=== PATIENT | male | born 1980 | race Caucasian/White ===

== ENCOUNTER 2016-05-20 10:17 | Emergency (ER) | payer BC, OTHER ==
[~2016-05-20] VITALS: Wt 90.7 kg
[~2016-05-20 10:17] MED LIST: ACYCLOVIR800 MG PO; AMITRIPTYLINE25 MG PO; AUGMENTIN 875 M1 TAB PO; BP MEDICATION PO; CEFTIN500 MG PO; CIALIS5 MG PO; CIPRO500 MG PO; CYCLOBENZAPRINE5 M3 PO; DARVOCET N 1001 TAB PO; DILAUDID1 MG/1 ML PO; DILAUDID4 MG PO; ETODOLAC400 M2 PO; FLEXERIL10 MG PO; FLOMAX0.4 MG PO; Fioricet 325 MG1 TAB PO; HYDROCODONE BIT1 T11 PO; IBU-8800 MG PO; KEFLEX500 MG PO; MEDROL DOSEPAK4 MG PO; Motrin,Rufen800 MG PO; NAPROSYN500 MG PO; NORVASC5 MG PO; PERCOCET 325 MG1 TA2 PO; PERCOCET 325 MG1 TA3 PO; PERCOCET 325 MG1 TA4 PO; PROVENTIL0.09 MG/AC IH; PYRIDIUM200 M1 PO; ROBAXIN750 MG PO; TRAMADOL HCL50 MG PO; VIBRAMYCIN100 MG PO; VICODIN 5/500 505 MG PO; VICODIN 500 MG-1 TAB PO; VOLTAREN50 M1 PO; ZITHROMAX250 MG PO; ZOFRAN ODT4 MG SL
[2016-05-20] MEDS ORDERED: NAPROSYN500 MG PO (11:29)
[2016-05-20 11:32] VITALS: BP 140/82
== END 2016-05-20 11:54 | disposition home or self-care (01) ==
LOC: ED 10:17
DX: S93.401A Sprain of unspecified ligament of right ankle, initial encounter (principal); F17.200 Nicotine dependence, unspecified, uncomplicated; Z90.49 Acquired absence of other specified parts of digestive tract; Z98.890 Other specified postprocedural states; Z87.442 Personal history of urinary calculi; X58.XXXA Exposure to other specified factors, initial encounter; Y93.89 Activity, other specified; Y92.89 Other specified places as the place of occurrence of the external cause; Y99.9 Unspecified external cause status

== ENCOUNTER → 2016-08-16 | Outpatient (CLI) | payer BC, OTHER | END | disposition home or self-care (01) | LOC: MRI 08-15 10:00 | DX: F07.81 Postconcussional syndrome (principal) ==

== ENCOUNTER 2016-11-11 01:53 | Emergency (ER) | payer BC, OTHER ==
[~2016-11-11] VITALS: Ht 180.3 cm; Wt 86.2 kg
[2016-11-11 02:37] LABS: BASO # 0.1 10*3/uL (0.0-0.1); BASO % 0.5 % (0.0-1.0); EOS # 0.2 10*3/uL (0.0-0.4); EOS % 1.9 % (1.0-4.0); HEMATOCRIT 45.1 % (42.0-52.0); HEMOGLOBIN 14.6 g/dl (14.0-18.0); LYMPH # 3.1 10*3/uL (1.3-4.4); LYMPH % 27.4 % (27.0-41.0); MEAN CELL VOLUME 90.9 fl (80.0-94.0); MEAN CORPUSCULAR HGB 29.4 pg (27.0-31.0); MEAN CORPUSCULAR HGB CONC 32.4 g/dl (33.0-37.0); MONO # 0.8 10*3/uL (0.1-1.0); NEUT # 7.1 10*3/uL (2.3-7.9); NEUT % 62.8 % (47.0-73.0); PLATELET COUNT AUTOMATED 328 10*3/uL (130-400); RED BLOOD COUNT 4.96 10*6/uL (4.50-5.90); RED CELL DISTRI WIDTH 13.1 % (0-14.5); WHITE BLOOD COUNT 11.4 10*3/uL (4.8-10.8)
[2016-11-11 02:53] LABS: ALBUMIN 3.8 gm/dl (3.1-4.5); ALKALINE PHOSPHATASE 93 U/L (45-117); BILIRUBIN, TOTAL 0.2 mg/dl (0.2-1.0); BUN 13 mg/dl (7-24); CARBON DIOXIDE 29 mmol/L (21-32); CHLORIDE 104 mmol/L (98-107); EST GLOM FILT AFRICAN AMERICAN > 60 ml/min; GLUCOSE 96 mg/dL (65-99); POTASSIUM 3.9 mmol/L (3.5-5.1); SGOT/AST 10 IU/L (3-35); SGPT/ALT 22 U/L (12-78); SODIUM 142 mmol/L (136-145); TOTAL PROTEIN 7.7 gm/dL (6.4-8.2)
[2016-11-11 03:27] LABS: BILIRUBIN NEGATIVE (NEGATIVE); BLOOD 3+ (NEGATIVE); CLARITY SL CLOUDY (CLEAR); COLOR YELLOW (YELLOW); GLUCOSE NEGATIVE (NEGATIVE); KETONE TRACE (NEGATIVE); LEUKO ESTERASE NEGATIVE (NEGATIVE); NITRITE NEGATIVE (NEGATIVE); PROTEIN TRACE (NEGATIVE); SPECIFIC GRAVITY 1.025 (1.005-1.030); UROBILINOGEN 0.2 E.U./dl (0.2-1.0)
[2016-11-11 03:35] LABS: BACTERIA 2+; CALCIUM OXALATE CRYSTALS 1+; RBC TNTC rbc/hpf (0-2); URINE REFLEX COMMENT YES (NO); WBC 0-2 wbc/hpf (0-5)
[2016-11-11 04:01] VITALS: BP 184/98
== END 2016-11-11 05:08 | disposition home or self-care (01) ==
LOC: ED 01:53
PROVIDERS: Emergency Medicine
DX: N20.1 Calculus of ureter (principal); Z90.49 Acquired absence of other specified parts of digestive tract

== ENCOUNTER 2017-04-13 15:55 | Emergency (ER) | payer BC, OTHER ==
[~2017-04-13] VITALS: Ht 180.3 cm; Wt 95.3 kg
[2017-04-13 16:02] VITALS: BP 142/130
[2017-04-13] MEDS ORDERED: PERCOCET 5-3251 EACH PO (17:07)
[2017-04-13] MEDS ORDERED: NAPROSYN500 MG PO (17:07)
[2017-04-14] MEDS ORDERED: SERTRALINE HYD100 MG PO (14:21)
[2017-04-14] MEDS ORDERED: BUSPAR15 MG PO (14:21)
[2017-04-18] MEDS ORDERED: PERCOCET 10-321 EACH PO (17:12)
[2017-04-18] MEDS ORDERED: Zofran4 MG PO (17:13)
== END 2017-04-13 17:26 | disposition home or self-care (01) ==
LOC: ED 15:55
DX: S42.021A Displaced fracture of shaft of right clavicle, initial encounter for closed fracture (principal); R03.0 Elevated blood-pressure reading, without diagnosis of hypertension; F17.200 Nicotine dependence, unspecified, uncomplicated; W22.09XA Striking against other stationary object, initial encounter; Y93.I9 Activity, other involving external motion; Y92.89 Other specified places as the place of occurrence of the external cause; Y99.8 Other external cause status

== ENCOUNTER → 2017-04-18 | Day surgery (SDC) | payer BC, OTHER ==
[2017-04-14 14:38] VITALS: BP 156/74
[2017-04-14 15:21] LABS: BASO % 0.4 % (0.0-1.0); EOS # 0.3 10*3/uL (0.0-0.4); EOS % 4.6 % (1.0-4.0); HEMATOCRIT 39.7 % (42.0-52.0); HEMOGLOBIN 13.1 g/dl (14.0-18.0); LYMPH # 2.2 10*3/uL (1.3-4.4); LYMPH % 31.6 % (27.0-41.0); MEAN CELL VOLUME 93.9 fl (80.0-94.0); MEAN PLATELET VOLUME 11.4 fl (9.6-12.3); MONO # 0.6 10*3/uL (0.1-1.0); MONO % 8.4 % (3.0-9.0); NEUT # 3.8 10*3/uL (2.3-7.9); NEUT % 54.3 % (47.0-73.0); PLATELET COUNT AUTOMATED 274 10*3/uL (130-400); RED BLOOD COUNT 4.23 10*6/uL (4.50-5.90); RED CELL DISTRI WIDTH 14.5 % (0-14.5)
[2017-04-14 15:43] LABS: ALKALINE PHOSPHATASE 71 U/L (45-117); BUN 20 mg/dl (7-24); CHLORIDE 105 mmol/L (98-107); CREATININE 1.45 mg/dL (0.70-1.30); SGOT/AST 24 IU/L (3-35); SGPT/ALT 27 U/L (12-78); SODIUM 137 mmol/L (136-145); TOTAL PROTEIN 7.8 gm/dL (6.4-8.2)
[2017-04-14 16:32] LABS: BILIRUBIN NEGATIVE (NEGATIVE); BLOOD NEGATIVE (NEGATIVE); CLARITY SL CLOUDY (CLEAR); COLOR YELLOW (YELLOW); GLUCOSE NEGATIVE (NEGATIVE); KETONE NEGATIVE (NEGATIVE); LEUKO ESTERASE NEGATIVE (NEGATIVE); NITRITE NEGATIVE (NEGATIVE); SPECIFIC GRAVITY >= 1.030 (1.005-1.030); UROBILINOGEN 0.2 E.U./dl (0.2-1.0)
[2017-04-14 16:41] LABS: BACTERIA 2+; CALCIUM OXALATE CRYSTALS 4+; EPITHELIAL CELLS 0-2; MUCOUS TRACE; RBC 0-2 rbc/hpf (0-2)
[2017-04-18] VITALS (8 sets, daily range): BP systolic 114–132; BP diastolic 76–92
[~2017-04-18] VITALS: Ht 180.3 cm; Wt 97.5 kg
[~2017-04-18] MED LIST changes: +BUSPAR15 MG PO; +PERCOCET 10-321 EACH PO; +PERCOCET 5-3251 EACH PO; +SERTRALINE HYD100 MG PO; +Zofran4 MG PO
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
== END ==
LOC: SDC 04-14 14:00
PROVIDERS: Orthopaedic Surgery
DX: S42.021A Displaced fracture of shaft of right clavicle, initial encounter for closed fracture (principal); F17.210 Nicotine dependence, cigarettes, uncomplicated; K21.9 Gastro-esophageal reflux disease without esophagitis; F41.9 Anxiety disorder, unspecified; F32.9 Major depressive disorder, single episode, unspecified; Z90.49 Acquired absence of other specified parts of digestive tract; Z98.890 Other specified postprocedural states; Y93.I9 Activity, other involving external motion; Y93.89 Activity, other specified; Y92.89 Other specified places as the place of occurrence of the external cause; Y99.8 Other external cause status

== ENCOUNTER → 2017-04-26 | Outpatient (CLI) | payer BC, OTHER | END | disposition home or self-care (01) | LOC: ORTHO 07:14 | DX: M89.8X1 Other specified disorders of bone, shoulder (principal); J98.11 Atelectasis ==

== ENCOUNTER → 2017-05-31 | Outpatient (CLI) | payer BC, OTHER | END | disposition home or self-care (01) | LOC: ORTHO 00:34 | DX: S42.021D Displaced fracture of shaft of right clavicle, subsequent encounter for fracture with routine healing (principal); X58.XXXD Exposure to other specified factors, subsequent encounter ==

== ENCOUNTER → 2017-07-10 | Outpatient (CLI) | payer BC, OTHER | END | disposition home or self-care (01) | LOC: ORTHO 02:10 | DX: Z01.818 Encounter for other preprocedural examination (principal); S42.021D Displaced fracture of shaft of right clavicle, subsequent encounter for fracture with routine healing; X58.XXXD Exposure to other specified factors, subsequent encounter ==

== ENCOUNTER 2017-09-14 09:25 | Emergency (ER) | payer BC, OTHER ==
[~2017-09-14] VITALS: Ht 175.2 cm; Wt 95.3 kg
[2017-09-14] MEDS ORDERED: MEDROL DOSEPAK4 MG PO (12:34)
[2017-09-14] MEDS ORDERED: Percocet 325 MG1 TAB PO (12:34)
[2017-09-14] MEDS ORDERED: CYCLOBENZAPRINE10 MG PO (12:34)
== END 2017-09-14 12:53 | disposition home or self-care (01) ==
LOC: ED 09:25
DX: S39.012A Strain of muscle, fascia and tendon of lower back, initial encounter (principal); M25.511 Pain in right shoulder; Z79.899 Other long term (current) drug therapy; Z87.442 Personal history of urinary calculi; Z90.49 Acquired absence of other specified parts of digestive tract; X50.0XXA Overexertion from strenuous movement or load, initial encounter; Y93.89 Activity, other specified; Y92.89 Other specified places as the place of occurrence of the external cause; Y99.8 Other external cause status

== ENCOUNTER 2017-10-10 17:10 | Emergency (ER) | payer BC, OTHER ==
[~2017-10-10] VITALS: Ht 182.8 cm; Wt 104.3 kg
[~2017-10-10 17:10] MED LIST changes: +CYCLOBENZAPRINE10 MG PO; +Percocet 325 MG1 TAB PO
[2017-10-10 18:21] VITALS: BP 114/77
== END 2017-10-10 19:00 | disposition home or self-care (01) ==
LOC: ED 17:10
DX: S69.91XA Unspecified injury of right wrist, hand and finger(s), initial encounter (principal); F32.9 Major depressive disorder, single episode, unspecified; F41.9 Anxiety disorder, unspecified; F90.9 Attention-deficit hyperactivity disorder, unspecified type; Z90.49 Acquired absence of other specified parts of digestive tract; Z98.890 Other specified postprocedural states; Z79.899 Other long term (current) drug therapy; W22.8XXA Striking against or struck by other objects, initial encounter; Y93.89 Activity, other specified; Y92.89 Other specified places as the place of occurrence of the external cause; Y99.9 Unspecified external cause status

== ENCOUNTER 2017-10-12 16:22 | Emergency (ER) | payer BC, OTHER ==
[~2017-10-12] VITALS: Ht 154.9 cm; Wt 93.0 kg
[2017-10-12 16:26] VITALS: BP 108/81
[2017-10-12] MEDS ORDERED: NORCO 5-325 TA1 EACH PO (18:12)
== END 2017-10-12 18:16 | disposition home or self-care (01) ==
LOC: ED 16:22
DX: S62.91XA Unspecified fracture of right hand, initial encounter for closed fracture (principal); F17.200 Nicotine dependence, unspecified, uncomplicated; Z90.49 Acquired absence of other specified parts of digestive tract; Z98.890 Other specified postprocedural states; Z79.899 Other long term (current) drug therapy; W22.8XXA Striking against or struck by other objects, initial encounter; Y93.89 Activity, other specified; Y92.89 Other specified places as the place of occurrence of the external cause; Y99.9 Unspecified external cause status

== ENCOUNTER 2017-11-15 11:23 | Emergency (ER) | payer BC, OTHER ==
[~2017-11-15] VITALS: Ht 180.3 cm; Wt 97.5 kg
[~2017-11-15 11:23] MED LIST changes: +NORCO 5-325 TA1 EACH PO
[2017-12-15] MEDS ORDERED: KEFLEX500 M1 PO (21:46)
[2017-12-15] MEDS ORDERED: MOBIC7.5 MG PO (22:10)
[2017-12-18] MEDS ORDERED: NAPROSYN500 MG PO (11:30)
== END 2017-11-15 13:40 | disposition home or self-care (01) ==
LOC: ED 11:23
DX: F41.8 Other specified anxiety disorders (principal); F17.200 Nicotine dependence, unspecified, uncomplicated; Z90.49 Acquired absence of other specified parts of digestive tract; Z79.899 Other long term (current) drug therapy

== ENCOUNTER 2017-11-24 03:32 | Emergency (ER) | payer BC, OTHER ==
[~2017-11-24] VITALS: Ht 180.3 cm; Wt 81.6 kg
--- NOTE | ~2017-11-24 | EKG ---
[place], [place] ELECTROCARDIOGRAM REPORT NAME: MAVIS NIELSEN UNIT #: [id number] ROOM: DOCTOR: EPIPHANY DRAFT REPORT BIRTHDATE: [birth year] [facility] Test Date: 2017-11-24 Test Time: 04:15:14 Pat Name: MAVIS NIELSEN Department: ER Room: 4 Gender: M Cane Piler: : 1980 Requested By: EMMETT THORNTON Order Number: [id number] Reading MD: Ramón Burns MD Measurements Intervals [place] Rate: 103 P: 51 SC: 174 QRS: -11 QRSD: 85 T: 65 QT: 354 QTc: 464 Interpretive Statements Sinus tachycardia Probable left atrial enlargement RSR' in V1 or V2, right VCD or RVH Baseline wander in lead(s) I,II,aVR,aVL,aVF,V3,V4,V5,V6 Electronically Signed On 11-24-2017 21:36:59 PDT by Ramón Burns MD CM:EKGRPT:ELECTROCARDIOGRAM REPORT [id number] EMMETT HERNANDEZ DRAFT REPORT EMMETT THORNTON DO
[2017-11-24 03:39] VITALS: BP 141/85
[2017-11-24] MEDS ORDERED: SEROQUEL100 MG PO (03:41)
[2017-11-24] MEDS ORDERED: ZOLOFT100 MG PO (03:41)
[2017-11-24] MEDS ORDERED: TRAZODONE150 MG PO (03:41)
[2017-11-24] MEDS ORDERED: BUSPIRONE30 MG PO (03:42)
[2017-11-24] MEDS ORDERED: CLONIDINE0.2 MG PO (03:42)
[2017-11-24] MEDS ORDERED: WELLBUTRIN SR100 MG PO (03:43)
[2017-11-24 04:23] LABS: BASO # 0.1 10*3/uL (0.0-0.1); BASO % 0.6 % (0.0-1.0); EOS # 0.4 10*3/uL (0.0-0.4); EOS % 4.5 % (1.0-4.0); HEMATOCRIT 39.3 % (42.0-52.0); HEMOGLOBIN 12.7 g/dl (14.0-18.0); LYMPH # 2.8 10*3/uL (1.3-4.4); LYMPH % 32.8 % (27.0-41.0); MEAN CELL VOLUME 93.6 fl (80.0-94.0); MEAN CORPUSCULAR HGB 30.2 pg (27.0-31.0); MEAN CORPUSCULAR HGB CONC 32.3 g/dl (33.0-37.0); MEAN PLATELET VOLUME 12.1 fl (9.6-12.3); MONO # 0.8 10*3/uL (0.1-1.0); MONO % 9.1 % (3.0-9.0); NEUT # 4.4 10*3/uL (2.3-7.9); NEUT % 52.6 % (47.0-73.0); PLATELET COUNT AUTOMATED 202 10*3/uL (130-400); RED CELL DISTRI WIDTH 15.5 % (0-14.5); WHITE BLOOD COUNT 8.4 10*3/uL (4.8-10.8)
[2017-11-24 04:41] LABS: ALBUMIN 3.4 gm/dl (3.1-4.5); ALKALINE PHOSPHATASE 74 U/L (45-117); BUN 16 mg/dl (7-24); CHLORIDE 109 mmol/L (98-107); CREATININE 1.52 mg/dL (0.70-1.30); POTASSIUM 3.1 mmol/L (3.5-5.1); SGOT/AST 15 IU/L (3-35); SGPT/ALT 27 U/L (12-78); SODIUM 144 mmol/L (136-145); TOTAL PROTEIN 6.5 gm/dL (6.4-8.2)
[2017-11-24 04:43] LABS: ACETAMINOPHEN (TYLENOL) < 2.0 ug/ml (10-30)
[2017-11-24 04:46] LABS: ETHYL ALCOHOL < 3.0 mg/dl (<3)
[2017-11-24 05:23] LABS: BILIRUBIN NEGATIVE (NEGATIVE); BLOOD NEGATIVE (NEGATIVE); CLARITY CLEAR (CLEAR); COLOR YELLOW (YELLOW); GLUCOSE NEGATIVE (NEGATIVE); KETONE TRACE (NEGATIVE); LEUKO ESTERASE NEGATIVE (NEGATIVE); NITRITE NEGATIVE (NEGATIVE); SPECIFIC GRAVITY >= 1.030 (1.005-1.030); UROBILINOGEN 0.2 E.U./dl (0.2-1.0)
[2017-11-24 05:32] LABS: WBC 0-2 wbc/hpf (0-5)
[2017-11-24 05:33] LABS: URINE AMPHETAMINES < 1000 (1000ng/ml); URINE BARBITURATES < 200 (200ng/ml); URINE BENZODIAZEPINES > 200 (200ng/ml); URINE CANNABINOIDS (THC) < 50 (50ng/ml); URINE COCAINE < 300 (300ng/ml); URINE METHADONE < 300 (300ng/ml); URINE OPIATES < 300 (300ng/ml)
[2017-11-24 05:35] LABS: URINE PHENCYCLIDINE < 25 (25ng/ml)
[2017-12-15] MEDS ORDERED: KEFLEX500 M1 PO (21:46)
[2017-12-15] MEDS ORDERED: MOBIC7.5 MG PO (22:10)
[2017-12-18] MEDS ORDERED: NAPROSYN500 MG PO (11:30)
== END 2017-11-24 06:59 | disposition left against medical advice (07) ==
LOC: ED 03:32
PROVIDERS: Emergency Medicine
DX: R41.82 Altered mental status, unspecified (principal); M54.9 Dorsalgia, unspecified; M79.606 Pain in leg, unspecified; Z79.899 Other long term (current) drug therapy; Z90.49 Acquired absence of other specified parts of digestive tract

== ENCOUNTER 2018-01-23 22:28 | Emergency (ER) | payer BC, OTHER ==
[~2018-01-23] VITALS: Ht 200.6 cm; Wt 90.7 kg
[~2018-01-23 22:28] MED LIST changes: +BUSPIRONE30 MG PO; +CLONIDINE0.2 MG PO; +KEFLEX500 M1 PO; +MOBIC7.5 MG PO; +SEROQUEL100 MG PO; +TRAZODONE150 MG PO; +WELLBUTRIN SR100 MG PO; +ZOLOFT100 MG PO
[2018-01-23 22:29] VITALS: BP 139/65
== END 2018-01-24 01:34 | disposition home or self-care (01) ==
LOC: ED 22:28
DX: R51 Headache (principal); R11.10 Vomiting, unspecified; Z79.899 Other long term (current) drug therapy; Z87.442 Personal history of urinary calculi; Z90.49 Acquired absence of other specified parts of digestive tract

== ENCOUNTER 2018-01-24 12:05 | Emergency (ER) | payer BC, OTHER ==
[~2018-01-24] VITALS: Ht 180.3 cm; Wt 95.3 kg
[2018-01-24 13:07] LABS: BASO % 0.2 % (0.0-1.0); HEMATOCRIT 51.6 % (42.0-52.0); LYMPH # 2.1 10*3/uL (1.3-4.4); LYMPH % 15.4 % (27.0-41.0); MEAN CELL VOLUME 93.1 fl (80.0-94.0); MEAN CORPUSCULAR HGB 30.7 pg (27.0-31.0); MEAN CORPUSCULAR HGB CONC 32.9 g/dl (33.0-37.0); MEAN PLATELET VOLUME 11.2 fl (9.6-12.3); MONO # 0.9 10*3/uL (0.1-1.0); NEUT # 10.4 10*3/uL (2.3-7.9); NEUT % 77.1 % (47.0-73.0); PLATELET COUNT AUTOMATED 282 10*3/uL (130-400); RED BLOOD COUNT 5.54 10*6/uL (4.50-5.90); RED CELL DISTRI WIDTH 13.6 % (0-14.5); WHITE BLOOD COUNT 13.5 10*3/uL (4.8-10.8)
[2018-01-24 13:30] LABS: ACETAMINOPHEN (TYLENOL) < 2.0 ug/ml (10-30); ALBUMIN 4.4 gm/dl (3.1-4.5); ALKALINE PHOSPHATASE 73 U/L (45-117); BUN 19 mg/dl (7-24); CHLORIDE 109 mmol/L (98-107); CREATININE 1.47 mg/dL (0.70-1.30); ETHYL ALCOHOL < 3.0 mg/dl (<3); POTASSIUM 4.3 mmol/L (3.5-5.1); SGOT/AST 14 IU/L (3-35); SGPT/ALT 28 U/L (12-78); SODIUM 140 mmol/L (136-145); TOTAL PROTEIN 8.4 gm/dL (6.4-8.2)
[2018-01-24 15:19] LABS: BILIRUBIN 1+ (NEGATIVE); BLOOD TRACE-LYSED (NEGATIVE); CLARITY SL CLOUDY (CLEAR); COLOR YELLOW (YELLOW); GLUCOSE NEGATIVE (NEGATIVE); KETONE NEGATIVE (NEGATIVE); LEUKO ESTERASE NEGATIVE (NEGATIVE); NITRITE NEGATIVE (NEGATIVE); SPECIFIC GRAVITY >= 1.030 (1.005-1.030); UROBILINOGEN 0.2 E.U./dl (0.2-1.0)
[2018-01-24 15:30] LABS: CALCIUM OXALATE CRYSTALS 1+
[2018-01-24 15:31] LABS: BACTERIA 1+; HYALINE CAST 31-40; MUCOUS 1+
[2018-01-24 15:32] LABS: EPITHELIAL CELLS 0-2
[2018-01-24 15:33] LABS: URINE AMPHETAMINES < 1000 (1000ng/ml); URINE BARBITURATES < 200 (200ng/ml); URINE BENZODIAZEPINES > 200 (200ng/ml); URINE CANNABINOIDS (THC) > 50 (50ng/ml); URINE COCAINE < 300 (300ng/ml); URINE METHADONE < 300 (300ng/ml); URINE OPIATES < 300 (300ng/ml); URINE PHENCYCLIDINE < 25 (25ng/ml)
== END 2018-01-24 17:13 | disposition home or self-care (01) ==
LOC: ED 12:05
PROVIDERS: Physician Assistant
DX: R51 Headache (principal); F41.9 Anxiety disorder, unspecified; Z79.899 Other long term (current) drug therapy

== ENCOUNTER 2018-02-14 14:47 | Inpatient (IN) | payer OTHER ==
[~2018-02-14] VITALS: Ht 180.3 cm; Wt 88.6 kg
--- NOTE | ~2018-02-14 | EKG ---
[place], [place] ELECTROCARDIOGRAM REPORT NAME: MAVIS NIELSEN UNIT #: [id number] ROOM: [facility] DOCTOR: NIDHI DRAFT REPORT BIRTHDATE: [birth year] [facility] Test Date: 2018-02-14 Test Time: 15:06:00 Pat Name: MAVIS NIELSEN Department: Room: [facility] Gender: M Rn Pain Management: SS RESP : 1980 Requested By: RUSS DUNN Order Number: [id number] Reading MD: Talat Calabrese MD Measurements Intervals [place] Rate: 109 P: 39 MD: 156 QRS: -21 QRSD: 81 T: 77 QT: 341 QTc: 460 Interpretive Statements Sinus tachycardia Borderline left axis deviation RSR' in V1 or V2, probably normal variant Electronically Signed On 02-19-2018 13:48:32 PDT by Talat Calabrese MD CM:EKGRPT:ELECTROCARDIOGRAM REPORT [id number] RUSS TERRELL DRAFT REPORT RUSS DUNN MD
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
[2018-02-14 14:51] VITALS: BP 144/87
[2018-02-14 15:10] LABS: BASO % 0.5 % (0.0-1.0); EOS # 0.1 10*3/uL (0.0-0.4); EOS % 0.9 % (1.0-4.0); HEMATOCRIT 45.6 % (42.0-52.0); LYMPH % 34.9 % (27.0-41.0); MEAN CELL VOLUME 92.3 fl (80.0-94.0); MEAN CORPUSCULAR HGB 30.4 pg (27.0-31.0); MEAN CORPUSCULAR HGB CONC 32.9 g/dl (33.0-37.0); MEAN PLATELET VOLUME 11.5 fl (9.6-12.3); MONO # 0.5 10*3/uL (0.1-1.0); MONO % 9.6 % (3.0-9.0); NEUT % 53.2 % (47.0-73.0); PLATELET COUNT AUTOMATED 269 10*3/uL (130-400); RED BLOOD COUNT 4.94 10*6/uL (4.50-5.90); RED CELL DISTRI WIDTH 14.2 % (0-14.5); WHITE BLOOD COUNT 5.6 10*3/uL (4.8-10.8)
[2018-02-14 15:16] LABS: ACT PARTIAL THROMBO TIME 24.2 SECONDS (20.8-31.5)
[2018-02-14 15:23] LABS: ALBUMIN 3.6 gm/dl (3.1-4.5); ALKALINE PHOSPHATASE 54 U/L (45-117); BUN 10 mg/dl (7-24); CHLORIDE 107 mmol/L (98-107); CREATININE 1.27 mg/dL (0.70-1.30); POTASSIUM 3.7 mmol/L (3.5-5.1); SGOT/AST 15 IU/L (3-35); SGPT/ALT 24 U/L (12-78); SODIUM 140 mmol/L (136-145); TOTAL PROTEIN 7.6 gm/dL (6.4-8.2); TROPONIN I 0.016 ng/ml (<0.045)
[2018-02-14 15:25] LABS: ACETAMINOPHEN (TYLENOL) < 5.0 ug/ml (10-30); ETHYL ALCOHOL < 3.0 mg/dl (<3)
[2018-02-14 16:00] VITALS: BP 140/91
[2018-02-14 16:03] LABS: BILIRUBIN NEGATIVE (NEGATIVE); BLOOD NEGATIVE (NEGATIVE); CLARITY CLEAR (CLEAR); COLOR YELLOW (YELLOW); GLUCOSE NEGATIVE (NEGATIVE); KETONE NEGATIVE (NEGATIVE); LEUKO ESTERASE NEGATIVE (NEGATIVE); NITRITE NEGATIVE (NEGATIVE); UROBILINOGEN 0.2 E.U./dl (0.2-1.0)
[2018-02-14 16:11] LABS: URINE AMPHETAMINES < 1000 (1000ng/ml); URINE BARBITURATES < 200 (200ng/ml); URINE BENZODIAZEPINES < 200 (200ng/ml); URINE CANNABINOIDS (THC) < 50 (50ng/ml); URINE COCAINE < 300 (300ng/ml); URINE METHADONE < 300 (300ng/ml); URINE OPIATES < 300 (300ng/ml)
[2018-02-14 16:13] LABS: RBC 0-2 rbc/hpf (0-2); URINE PHENCYCLIDINE < 25 (25ng/ml)
[2018-02-14 16:14] LABS: BACTERIA TRACE; EPITHELIAL CELLS 0-2; WBC 0-2 wbc/hpf (0-5)
[2018-02-14 18:12] VITALS: BP 143/94
[2018-02-14 18:58] VITALS: BP 122/96
[2018-02-14 19:40] VITALS: BP 140/91
[2018-02-14] MEDS ORDERED: ATIVAN0.5 MG PO (21:00)
[2018-02-15] VITALS: BP 146/79
[2018-02-15 04:00] VITALS: BP 150/82
[2018-02-15 06:03] LABS: BASO # 0.1 10*3/uL (0.0-0.1); BUN 10 mg/dl (7-24); CHLORIDE 110 mmol/L (98-107); CHOLESTEROL 169 mg/dL (<200); CREATININE 1.27 mg/dL (0.70-1.30); EOS # 0.2 10*3/uL (0.0-0.4); EOS % 3.3 % (1.0-4.0); HDL CHOLESTEROL 69 mg/dl (40-60); HEMATOCRIT 43.9 % (42.0-52.0); HEMOGLOBIN 14.4 g/dl (14.0-18.0); LDL CHOLESTEROL 78 mg/dL (9-159); LYMPH # 2.1 10*3/uL (1.3-4.4); LYMPH % 42.8 % (27.0-41.0); MEAN CELL VOLUME 93.4 fl (80.0-94.0); MEAN CORPUSCULAR HGB 30.6 pg (27.0-31.0); MEAN CORPUSCULAR HGB CONC 32.8 g/dl (33.0-37.0); MEAN PLATELET VOLUME 11.8 fl (9.6-12.3); MONO # 0.5 10*3/uL (0.1-1.0); MONO % 10.6 % (3.0-9.0); NEUT % 41.9 % (47.0-73.0); PHOSPHOROUS 2.8 mg/dL (2.5-4.9); PLATELET COUNT AUTOMATED 250 10*3/uL (130-400); POTASSIUM 4.3 mmol/L (3.5-5.1); SODIUM 141 mmol/L (136-145); TRIGLYCERIDES 108 mg/dl (<150); VLDL CHOLESTEROL 22 mg/dL (6-40); WHITE BLOOD COUNT 4.8 10*3/uL (4.8-10.8)
[2018-02-15 06:11] LABS: FREE T4 0.77 ng/dl (0.76-1.46)
[2018-02-15 08:00] VITALS: BP 158/87
== END 2018-02-15 12:27 | disposition home or self-care (01) | DRG 71 ==
LOC: ED 14:47 → EDHOLD 18:39 → ICCU 18:39
PROVIDERS: Emergency Medicine; Internal Medicine
DX: G93.40 Encephalopathy, unspecified (principal); F33.9 Major depressive disorder, recurrent, unspecified; E83.41 Hypermagnesemia; E66.3 Overweight; F43.10 Post-traumatic stress disorder, unspecified; M54.5 Low back pain; F17.210 Nicotine dependence, cigarettes, uncomplicated; R00.0 Tachycardia, unspecified; R73.9 Hyperglycemia, unspecified; R03.0 Elevated blood-pressure reading, without diagnosis of hypertension; F41.9 Anxiety disorder, unspecified; Z87.81 Personal history of (healed) traumatic fracture; Z68.27 Body mass index [BMI] 27.0-27.9, adult; Z71.6 Tobacco abuse counseling; Z90.49 Acquired absence of other specified parts of digestive tract; Z79.899 Other long term (current) drug therapy

== ENCOUNTER 2018-02-27 23:44 | Emergency (ER) | payer OTHER ==
[~2018-02-27] VITALS: Ht 180.3 cm; Wt 83.9 kg
[~2018-02-27 23:44] MED LIST changes: +ATIVAN0.5 MG PO
[2018-02-27 23:47] VITALS: BP 136/65
[2018-02-28] MEDS ORDERED: DOXYCYCLINE100 MG PO (01:13)
== END 2018-02-28 02:28 | disposition left against medical advice (07) ==
LOC: ED 23:44
DX: N45.1 Epididymitis (principal); L02.411 Cutaneous abscess of right axilla; F17.200 Nicotine dependence, unspecified, uncomplicated; Z79.899 Other long term (current) drug therapy; Z90.49 Acquired absence of other specified parts of digestive tract

== ENCOUNTER 2018-12-03 10:22 | Emergency (ER) | payer OTHER ==
[~2018-12-03] VITALS: Ht 180.3 cm; Wt 97.5 kg
[~2018-12-03 10:22] MED LIST changes: +DOXYCYCLINE100 MG PO
[2018-12-03 10:24] VITALS: BP 154/97
[2018-12-03] MEDS ORDERED: Motrin,Rufen800 MG PO (11:39)
== END 2018-12-03 12:00 | disposition home or self-care (01) ==
LOC: ED 10:22
DX: M76.821 Posterior tibial tendinitis, right leg (principal); M79.671 Pain in right foot; F17.200 Nicotine dependence, unspecified, uncomplicated; Z79.899 Other long term (current) drug therapy

== ENCOUNTER 2022-10-21 20:14 | Emergency (ER) | payer OTHER ==
[~2022-10-21] VITALS: Ht 177.8 cm
[2022-10-21 20:36] VITALS: BP 152/91
[2022-10-21 21:03] LABS: MEAN CELL VOLUME 90.5 fl (80.0-94.0); MEAN CORPUSCULAR HGB 30.2 pg (27.0-31.0); MEAN CORPUSCULAR HGB CONC 33.4 g/dl (33.0-37.0); MEAN PLATELET VOLUME 10.9 fl (9.6-12.3); PLATELET COUNT AUTOMATED 316 10*3/uL (130-400); RED BLOOD COUNT 4.86 10*6/uL (4.50-5.90); RED CELL DISTRI WIDTH 12.9 % (0-14.5); WHITE BLOOD COUNT 16.2 10*3/uL (4.8-10.8)
[2022-10-21 21:05] LABS: MANUAL DIFF REFLEX YES
[2022-10-21 21:22] LABS: PLATELET SUFFICIENCY NORMAL (NORMAL); TOTAL CELLS COUNTED 100 #CELLS
[2022-10-21 21:28] LABS: BUN 9 mg/dl (9-23); CHLORIDE 102 mmol/L (98-107)
== END 2022-10-21 22:53 | disposition home or self-care (01) ==
LOC: ED 20:14
PROVIDERS: Internal Medicine
DX: A41.9 Sepsis, unspecified organism (principal); L03.115 Cellulitis of right lower limb; R00.0 Tachycardia, unspecified; F17.200 Nicotine dependence, unspecified, uncomplicated; Z79.899 Other long term (current) drug therapy; Z90.49 Acquired absence of other specified parts of digestive tract; Z98.890 Other specified postprocedural states; Z53.29 Procedure and treatment not carried out because of patient's decision for other reasons

== ENCOUNTER 2022-10-22 18:01 | Inpatient (IN) | payer SELFPAY ==
[~2022-10-22] VITALS: Ht 177.8 cm; Wt 103.0 kg
[2022-10-22 18:07] VITALS: BP 160/71
[2022-10-22 18:51] LABS: HEMATOCRIT 41.3 % (42.0-52.0); MEAN CELL VOLUME 91.4 fl (80.0-94.0); MEAN CORPUSCULAR HGB 30.1 pg (27.0-31.0); MEAN CORPUSCULAR HGB CONC 32.9 g/dl (33.0-37.0); MEAN PLATELET VOLUME 11.1 fl (9.6-12.3); PLATELET COUNT AUTOMATED 336 10*3/uL (130-400); RED BLOOD COUNT 4.52 10*6/uL (4.50-5.90); RED CELL DISTRI WIDTH 13.1 % (0-14.5); WHITE BLOOD COUNT 17.6 10*3/uL (4.8-10.8)
[2022-10-22 18:54] LABS: MANUAL DIFF REFLEX YES
[2022-10-22 19:08] LABS: ALKALINE PHOSPHATASE 64 U/L (46-116); BUN 13 mg/dl (9-23); CHLORIDE 102 mmol/L (98-107); POTASSIUM 3.7 mmol/L (3.4-5.1); SGPT/ALT 52 U/L (10-49); TOTAL PROTEIN 7.6 gm/dL (6.0-8.0)
[2022-10-22 19:15] LABS: PLATELET SUFFICIENCY NORMAL (NORMAL); TOTAL CELLS COUNTED 100 #CELLS
[2022-10-22 19:16] LABS: BURR CELLS FEW
[2022-10-22 19:38] VITALS: BP 158/89
[2022-10-22 21:05] VITALS: BP 123/61
== END 2022-10-22 23:49 | disposition left against medical advice (07) | DRG 872 ==
LOC: ED 18:01 → EDHOLD 19:26 → 4E 19:26 → EDBEDREQSVC 20:08 → 4E 20:14
PROVIDERS: Student in an Organized Health Care Education/Training Program; ADMIT Emergency Medicine; ATTEND Emergency Medicine
DX: A41.9 Sepsis, unspecified organism (principal); L03.115 Cellulitis of right lower limb; E87.1 Hypo-osmolality and hyponatremia; E44.0 Moderate protein-calorie malnutrition; I10 Essential (primary) hypertension; F41.9 Anxiety disorder, unspecified; F32.A Depression, unspecified; Z53.29 Procedure and treatment not carried out because of patient's decision for other reasons; D64.9 Anemia, unspecified; R73.9 Hyperglycemia, unspecified; R74.01 Elevation of levels of liver transaminase levels; Z90.49 Acquired absence of other specified parts of digestive tract; Z68.32 Body mass index [BMI] 32.0-32.9, adult

== ENCOUNTER 2023-08-08 19:38 | Emergency (ER) | payer MEDICARE ==
[~2023-08-08] VITALS: Wt 137.4 kg
[2023-08-08] MEDS ORDERED: Naloxone Hydrochloride 2 MG/2 ML SYR ONE (19:45)
[2023-08-08 20:45] LABS: URINE AMPHETAMINES Positive (1000ng/ml); URINE BARBITURATES Negative (200ng/ml); URINE BENZODIAZEPINES Positive (200ng/ml); URINE CANNABINOIDS (THC) Negative (50ng/ml); URINE COCAINE Positive (300ng/ml); URINE METHADONE Negative (300ng/ml); URINE OPIATES Negative (300ng/ml); URINE PHENCYCLIDINE Negative (25ng/ml)
[2023-08-08] MEDS ORDERED: Tdap Vaccine 0.5 ML SYR (Adult Vaccine) IM ONE (21:05)
== END 2023-08-08 22:14 ==
LOC: ED 19:38
PROVIDERS: Internal Medicine
DX: S61.411A Laceration without foreign body of right hand, initial encounter (principal); F19.10 Other psychoactive substance abuse, uncomplicated; M25.512 Pain in left shoulder; Z91.030 Bee allergy status; Z90.49 Acquired absence of other specified parts of digestive tract; Z98.890 Other specified postprocedural states; F17.200 Nicotine dependence, unspecified, uncomplicated; F12.90 Cannabis use, unspecified, uncomplicated; X58.XXXA Exposure to other specified factors, initial encounter; Y93.89 Activity, other specified; Y92.89 Other specified places as the place of occurrence of the external cause; Y99.8 Other external cause status

== ENCOUNTER 2024-02-22 04:36 | Emergency (ER) | payer MEDICARE ==
[~2024-02-22] VITALS: Ht 180.3 cm; Wt 94.8 kg
[2024-02-22] MEDS ORDERED: LORazepam 1 MG TAB PO ONE ×2 (05:40→05:50)
[2024-02-22] MEDS ORDERED: Bacitracin Zinc 14 GM TUBE T ONE (06:45)
[2024-02-22 08:17] VITALS: BP 101/77
== END 2024-02-22 07:15 | disposition home or self-care (01) ==
LOC: ED 04:36
DX: S11.91XA Laceration without foreign body of unspecified part of neck, initial encounter (principal); F32.A Depression, unspecified; F17.200 Nicotine dependence, unspecified, uncomplicated; Z91.030 Bee allergy status; Z90.49 Acquired absence of other specified parts of digestive tract; Z98.890 Other specified postprocedural states; W26.1XXA Contact with sword or dagger, initial encounter; Y93.89 Activity, other specified; Y92.89 Other specified places as the place of occurrence of the external cause; Y99.8 Other external cause status

== ENCOUNTER 2025-02-25 17:15 | Emergency (ER) | payer OTHER ==
[2025-02-25 17:19] VITALS: BP 127/78
[2025-02-25] MEDS ORDERED: SODIUM CHLORIDE 0.9% 1,000 ML IV ONE (17:20)
[2025-02-25 17:45] LABS: BASO # 0.1 10*3/uL (0.0-0.1); BASO % 0.7 % (0.0-1.0); EOS # 0.3 10*3/uL (0.0-0.4); EOS % 4.3 % (1.0-4.0); MEAN CELL VOLUME 92.0 fl (80.0-94.0); MEAN CORPUSCULAR HGB 29.8 pg (27.0-31.0); MEAN PLATELET VOLUME 11.3 fl (9.6-12.3); MONO # 0.6 10*3/uL (0.1-1.0); MONO % 8.6 % (3.0-9.0); NEUT # 2.2 10*3/uL (2.3-7.9); NEUT % 31.9 % (47.0-73.0); NUCLEATED RED BLOOD CELL 0.0 % (0.0-0.0); NUCLEATED RED BLOOD CELL 0.0 10*3/uL (0.0-0.0); PLATELET COUNT AUTOMATED 198 10*3/uL (130-400); RED CELL DISTRI WIDTH 11.9 % (0-14.5)
[2025-02-25] MEDS ORDERED: MELOXICAM15 MG PO ×2 (18:49→19:26)
[2025-02-25 19:14] LABS: BUN 17 mg/dl (9-23)
[2025-02-25 19:26] LABS: BILIRUBIN Negative (Negative); BLOOD 3+ (Negative); CLARITY Clear (Clear); COLOR Red (Yellow); KETONE Negative (Negative); LEUKO ESTERASE Negative (Negative); NITRITE Negative (Negative); PH 7.5 (4.5-8.0); SPECIFIC GRAVITY 1.015 (1.001-1.030); UROBILINOGEN 0.2 E.U./dl (0.0-1.0)
[2025-02-25] MEDS ORDERED: CIPRO500 MG PO (19:26)
[2025-02-25 19:33] LABS: BACTERIA TRACE; RBC TNTC rbc/hpf (0-2); WBC 0-2 wbc/hpf (0-5)
== END 2025-02-25 19:33 | disposition home or self-care (01) ==
LOC: ED 17:15
PROVIDERS: Emergency Medicine
DX: R10.9 Unspecified abdominal pain (principal); R31.9 Hematuria, unspecified; F32.A Depression, unspecified; F12.90 Cannabis use, unspecified, uncomplicated; F17.210 Nicotine dependence, cigarettes, uncomplicated; Z98.890 Other specified postprocedural states; Z90.49 Acquired absence of other specified parts of digestive tract; Z91.030 Bee allergy status